=== PATIENT | female | born 1990 | race Caucasian/White ===

== ENCOUNTER 2016-11-12 10:06 | Day surgery (SDC) | payer OTHER, SELFPAY ==
[~2016-11-12 10:06] MED LIST: ALLERGY10 M2 PO; ATIVAN1 M2 PO; BACITRACIN28.4 G2 TOP; CAPSAICIN TP; CEFDINIR300 M1 PO; COLACE100 M1 PO; DIPHENHYDRAMINE50 M2 PO; ENDOCET 5-3251 EACH PO; FOLIC ACID1 M1 PO; GABAPENTIN300 M1 PO; HYDROCODON-ACE1 EA16 PO; IBUPROFEN800 M1 PO; LYRICA100 MG/CAP PO; METHADONE HCL5 M2 PO; MILK OF MAGNESIA PO; MIRALAX17 G2 PO; MUCINEX600 M1 PO; NICOTINE PATCH1 EACH AP; NO HOME MEDS; OXYCODONE HCL10 M2 PO; PERCOCET 5-3251 EACH PO; POTASSIUM99 M5 PO; PROTONIX40 M2 PO; ROXICODONE5 M2 PO; THIAMINE HCL100 M2 PO; VISTARIL25 M1 PO; VITAMIN B-1100 M3 PO; VITAMIN D1000 UNI2 PO; WELLBUTRIN XL300 M3 PO
== END 2016-11-12 15:00 ==
LOC: SHSB 10:06 → ORW 11:57 → PACU 13:04 → SHSB 13:41
PROC: 0H5 Skin and Breast, Destruction (ICD-10-PCS; principal; 2016-11-12)
PROC: 0H5NXZZ Destruction of Left Foot Skin, External Approach (ICD-10-PCS; 2016-11-12)
DX: L91.0 Hypertrophic scar (principal); M79.7 Fibromyalgia; F41.9 Anxiety disorder, unspecified; F32.9 Major depressive disorder, single episode, unspecified; K21.9 Gastro-esophageal reflux disease without esophagitis; F17.210 Nicotine dependence, cigarettes, uncomplicated; Q60.0 Renal agenesis, unilateral; J34.2 Deviated nasal septum; Z79.1 Long term (current) use of non-steroidal anti-inflammatories (NSAID); Z79.899 Other long term (current) drug therapy; Z88.2 Allergy status to sulfonamides; Z86.61 Personal history of infections of the central nervous system; Z87.440 Personal history of urinary (tract) infections; Z98.890 Other specified postprocedural states
CPT/HCPCS: J2250; J2405; J3010